=== PATIENT | female | born 1985 | race Caucasian/White ===

== ENCOUNTER 2017-11-02 05:18 | Emergency (ER) | payer MEDICAID ==
[2017-11-02 05:31] VITALS: RESP 18; TEMP 97.5; O2SAT 99
[2017-11-02] MEDS ORDERED: Sodium Chloride 0.9% 1,000 ML IV ONE (05:55)
[2017-11-02] MEDS ORDERED: DiphenhydrAMINE 50 mg/ml Inj IVP STA (05:56)
[2017-11-02] MEDS ORDERED: DiphenhydrAMINE 50 mg/ml Inj ONE (06:03)
[2017-11-02] MEDS ORDERED: Sodium Chloride 0.9% 1,000 ML ONE (06:03)
--- NOTE | 2017-11-02 06:03 | C.PDOC ---
History Of Present Illness 31 year old female presents to the ER with a complaint of a headache for the past 3 days that has worsened today, associated with nausea and photophobia. Patient states she has a Hx of similar headaches in the past for which she usually takes fioricet, however, it has not given her any relief which prompted visit. Denies fever, cough, or change in vision. Time Seen by Provider: 11/02/17 05:35 Chief Complaint (Nursing): Headache History Per: Patient History/Exam Limitations: no limitations Onset/Duration Of Symptoms: Days Current Symptoms Are (Timing): Still Present Pain Scale Rating Of: 7 Quality: Aching Preceeding Symptoms: None Associated Symptoms: Photophobia, Nausea Recent travel outside of the [place]: No Past Medical History Reviewed: Historical Data, Nursing Documentation, Vital Signs Vital Signs: Last Vital Signs Temp 97.5 F L 11/02/17 05:25 Pulse 69 11/02/17 05:25 Resp 18 11/02/17 05:25 BP 127/88 11/02/17 05:25 Pulse Ox 99 11/02/17 06:20 - Medical History PMH: Migraine Denies: Chronic Kidney Disease Family History: States: Unknown Family Hx - Social History Hx Alcohol Use: No Hx Substance Use: No - Immunization History Hx Tetanus Toxoid Vaccination: No Hx Influenza Vaccination: No Hx Pneumococcal Vaccination: No Review Of Systems Constitutional: Negative for: Fever Eyes: Positive for: Other (Photophobia). Negative for: Vision Change Respiratory: Negative for: Cough Gastrointestinal: Positive for: Nausea Neurological: Positive for: Headache. Negative for: Weakness, Numbness Physical Exam - Physical Exam Appears: Non-toxic Skin: Normal Color, Warm, Dry Head: Atraumatic, Normacephalic, No Tenderness (Temporal artery) Eye(s): bilateral: Normal Inspection, PERRL, EOMI Ear(s): Bilateral: Normal Oral Mucosa: Moist Throat: Normal, No Erythema Neck: Normal, No Midline Cervical Tenderness, No Paracervical Tenderness, Supple Chest: Symmetrical, No Tenderness Cardiovascular: Rhythm Regular Respiratory: Normal Breath Sounds, No Rales, No Rhonchi, No Wheezing Gastrointestinal/Abdominal: Soft, No Tenderness Back: Normal Inspection, No CVA Tenderness Extremity: Normal ROM (x4), No Swelling Neurological/Psych: Oriented x3, Normal Speech, Normal Motor, Normal Sensation Gait: Steady ED Course And Treatment - Laboratory Results Result Diagrams: 11/02/17 06:18 08 06:18 O2 Sat by Pulse Oximetry: 99 (Room air) Pulse Ox Interpretation: Normal Medical Decision Making Medical Decision Making: Blood work ordered. Benadryl, reglan, toradol, and IV fluids administered. 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 - Scribe Statement The provider has reviewed the documentation as recorded by the Scribe Issac Cardenas All medical record entries made by the Scribe were at my direction and personally dictated by me. I have reviewed the chart and agree that the record accurately reflects my personal performance of the history, physical exam, medical decision making, and the department course for this patient. I have also personally directed, reviewed, and agree with the discharge instructions and disposition. Physician Patient Turnover Patient Signed Over To: Valentina Collazo (Nehemias Hernandez) Handoff Comments: Pending re-eval.
[2017-11-02 06:23] LABS: BASO # 0.1 K/uL (0.0-0.2); BASO % 0.6 % (0.0-2.0); EOS # 0.2 K/uL (0.0-0.7); EOS % 2.3 % (0.0-4.0); HEMOGLOBIN 11.5 g/dL (11.0-16.0); LYMPH # 3.9 K/uL (1.0-4.3); MEAN CELL VOLUME 72.8 fL (81.0-99.0); MEAN CORPUSCULAR HEMOGLOBIN 23.7 pg (27.0-31.0); MEAN CORPUSCULAR HGB CONC 32.5 g/dL (33.0-37.0); MEAN PLATELET VOLUME 8.5 fL (7.2-11.7); MONO # 0.6 K/uL (0.0-0.8); MONO % 7.3 % (0.0-10.0); NEUT # 3.9 K/uL (1.8-7.0); NEUT % 44.8 % (50.0-75.0); RBC 4.88 Mil/uL (3.80-5.20); RED CELL DISTRIBUTION WIDTH 16.3 % (11.5-14.5); WHITE BLOOD COUNT 8.6 K/uL (4.8-10.8)
[2017-11-02 06:34] LABS: ALB/GLOB RATIO 1.2 (1.0-2.1); ALBUMIN 4.3 g/dL (3.5-5.0); ALT/SGPT 45 U/L (9-52); AST/SGOT 30 U/L (14-36); BLOOD UREA NITROGEN 7 mg/dL (7-17); CALCIUM 9.1 mg/dl (8.6-10.4); GFR AFRICAN-AMERICAN > 60; GFR NON-AFRICAN AMERICAN > 60
[2017-11-02 07:59] VITALS: BP 113/77; PULSE 60
== END 2017-11-02 09:05 | disposition home or self-care (01) ==
LOC: C.ER 05:18
DX: G43.909 Migraine, unspecified, not intractable, without status migrainosus (principal)
CPT/HCPCS: 80053; 85025; 96361; 96374; 96375; 99285; J1200; J1885; J2765; J7030

== ENCOUNTER 2018-02-18 21:15 | Emergency (ER) | payer MEDICAID ==
[2018-02-18 21:32] VITALS: TEMP 98.7
[2018-02-18] MEDS ORDERED: Oxycodone/Acetaminophen 5/325 mg Tab PO STA (21:49)
--- NOTE | 2018-02-18 21:51 | C.PDOC ---
History Of Present Illness 32 yo female w/PMhx of migraine comes in for evaluation of headache gradually developed for past 2-3 days. Pt reports, headache is diffuse, bend-like associated with light sensitivity. Pt sts, took Fioricet oone dose today at 4 PM without significant improvement. Pt admits, similar sx in past. Otherwise, pt denies fever, chills, recent illness, denies worse headache of life, dizziness, vertigo, visual changes, focal deficits, neck pain, CP, SOB, dyspnea, palpitation, abd. pain, V/D, UTI sx. Ambulate to Ed for evaluation, appears in pain. Time Seen by Provider: 02/18/18 21:40 Chief Complaint (Nursing): Headache Past Medical History Reviewed: Historical Data, Nursing Documentation, Vital Signs Vital Signs: Last Vital Signs Temp 98.7 F 02/18/18 21:26 Pulse 74 02/18/18 21:26 Resp 18 02/18/18 21:26 BP 119/84 02/18/18 21:26 Pulse Ox 100 02/18/18 21:26 - Medical History PMH: Migraine Denies: Chronic Kidney Disease Other PMH: Polycystic ovary Family History: States: Unknown Family Hx - Social History Hx Tobacco Use: No Hx Alcohol Use: No Hx Substance Use: No - Immunization History Hx Tetanus Toxoid Vaccination: No Hx Influenza Vaccination: Yes Hx Pneumococcal Vaccination: No Review Of Systems Except As Marked, All Systems Reviewed And Found Negative. Constitutional: Negative for: Fever, Chills Eyes: Negative for: Vision Change ENT: Negative for: Ear Discharge, Nose Discharge, Throat Pain Cardiovascular: Negative for: Chest Pain, Palpitations, Edema, Light Headedness Respiratory: Negative for: Cough, Shortness of Breath Gastrointestinal: Negative for: Nausea, Vomiting, Abdominal Pain Genitourinary: Negative for: Dysuria Musculoskeletal: Negative for: Neck Pain, Back Pain Skin: Negative for: Rash Neurological: Positive for: Headache. Negative for: Weakness, Numbness, Altered Mental Status, Dizziness Physical Exam - Physical Exam Appears: Well, No Acute Distress Skin: Normal Color, Warm, Dry, No Rash Head: Normacephalic Eye(s): bilateral: PERRL, EOMI Ear(s): Bilateral: Normal Nose: No Flaring, No Discharge Oral Mucosa: Moist Tongue: Normal Appearing Lips: Normal Appearing Throat: No Erythema, No Drooling Neck: Trachea Midline, Supple Cardiovascular: Rhythm Regular, No Murmur, No JVD Respiratory: No Decreased Breath Sounds, No Accessory Muscle Use, No Stridor, No Wheezing Gastrointestinal/Abdominal: Soft, No Tenderness Back: No CVA Tenderness Extremity: Normal ROM, No Pedal Edema, No Deformity, No Swelling Neurological/Psych: Oriented x3, Normal Speech, Normal Motor, Normal Sensation, Normal Reflexes ED Course And Treatment O2 Sat by Pulse Oximetry: 100 Pulse Ox Interpretation: Normal - CT Scan/US CT head w/o contrast Other Rad Studies (CT/US): Radiology Report Reviewed CT/US Interpretation: EXAM: CT Head without Intravenous Contrast. CLINICAL HISTORY: HEADACHE. TECHNIQUE: Axial computed tomography images of the head/brain without intravenous contrast. COMPARISON: None provided. FINDINGS: BRAIN. No acute intraparenchymal hemorrhage. No mass lesion. No CT evidence for acute territorial infarct. No midline shift or extra-axial collections. VENTRICLES: No hydrocephalus. ORBITS: The orbits are unremarkable. SINUSES AND MASTOIDS: Bilateral ethmoid and maxillary sinusitis. The mastoid air cells are clear. BONES: No fracture. SOFT TISSUES: Unremarkable. IMPRESSION: Sinusitis. No acute intracranial abnormality. . Electronically signed on Feb 18, 2018 11:02:26 PM EST by: Mohan Barr M.D., JENNIFER Certified By [facility]BR & [facility]. Fellowship Trained MRI and CT Specialist. Progress Note: On re-eval, pt is afebrile, hemodynamicaly stable. Non-toxic. Ambulatory in ED with stable gait. head: AT/NC. Neck: SUpple, (-) JVD, (-) meningeal sign. ENT: no acute findings. Lungs: CTA B/L, BS equal B/L. CVS: (+)S!S2, reg. Abd: benign, (-) guarding, (-) rebound. Neuorlogicaly intact. CT head results review anc c/w sinusitis. results review and discussed with patient. Pt advised and ref. to f/u with PMD, Neurologist in 2-3 days for re- eavl. return to ED if any worsening or new changes. Disposition Counseled Patient/Family Regarding: Studies Performed, Diagnosis, Need For Followup, Rx Given - Disposition Referrals: Home Romano MD [Staff Provider] - Disposition: HOME/ ROUTINE Disposition Time: 23:05 Condition: STABLE Additional Instructions: Encourage fluids Take medication as prescribed follow up with PMD, Neurologist in2 -3 days for re-evaluation. return to ED at any time if any worsening or new changes. Prescriptions: Amoxicillin/Clavulanate [Augmentin 875 MG-125 MG] 1 tab PO BID #14 tab Prednisone [Deltasone] 40 mg PO DAILY #6 tablet Instructions: Sinusitis in Adults, Sinus Headache (DC) Forms: [employer] (S[place] Arabian) - Clinical Impression Clinical Impression: Headache, Sinusitis
[2018-02-18] MEDS ORDERED: Oxycodone/Acetaminophen 5/325 mg Tab ONE (22:05)
[2018-02-18 22:19] LABS: HCG,QUALITATIVE URINE NEGATIVE (NEGATIVE)
[2018-02-18 22:23] LABS: SQUAMOUS EPITHIAL 7 /hpf (0-5); URINE BILIRUBIN NEGATIVE (NEGATIVE); URINE BLOOD NEGATIVE (NEGATIVE); URINE CLARITY Hazy (Clear); URINE COLOR Yellow (YELLOW); URINE GLUCOSE (UA) NORMAL (Normal); URINE LEUKOCYTE ESTERASE NEG Leu/uL (Negative); URINE PROTEIN NEGATIVE (NEGATIVE); URINE UROBILINOGEN NORMAL mg/dL (0.2-1.0)
[2018-02-18] MEDS ORDERED: Amoxicillin-Clav 875-125 mg Tab PO STA (23:06)
[2018-02-18] MEDS ORDERED: Amoxicillin-Clav 875-125 mg Tab PO ONE (23:19)
[2018-02-18 23:22] VITALS: BP 133/81; PULSE 82; RESP 16; O2SAT 98
--- NOTE | 2018-02-19 05:21 | CT ---
Date of service: 02/18/2018 PROCEDURE: CT HEAD WITHOUT CONTRAST. HISTORY: headache COMPARISON: None available. TECHNIQUE: Axial computed tomography images were obtained through the head/brain without intravenous contrast. Radiation dose: Total exam DLP = 955.74 mGy-cm. This CT exam was performed using one or more of the following dose reduction techniques: Automated exposure control, adjustment of the mA and/or kV according to patient size, and/or use of iterative reconstruction technique. FINDINGS: HEMORRHAGE: No intracranial hemorrhage. BRAIN: No mass effect or edema. No atrophy or chronic microvascular ischemic changes. VENTRICLES: Unremarkable. No hydrocephalus. CALVARIUM: Unremarkable. PARANASAL SINUSES: Moderate mucosal thickening noted in the right maxillary and sphenoid sinuses. MASTOID AIR CELLS: Unremarkable as visualized. No inflammatory changes. OTHER FINDINGS: None. IMPRESSION: No evidence of acute intracranial hemorrhage mass effect or midline shift. Moderate mucosal thickening of the right maxillary and sphenoid sinuses. Please correlate clinically for sinusitis. Preliminary report was submitted by [facility].
== END 2018-02-18 23:23 | disposition home or self-care (01) ==
LOC: C.ER 21:15
DX: J32.9 Chronic sinusitis, unspecified (principal); R51 Headache

== ENCOUNTER 2018-03-07 12:48 | Emergency (ER) | payer MEDICAID ==
--- NOTE | 2018-03-07 14:27 | C.PDOC ---
History Of Present Illness 32 year old female presents to the emergency department with complaints of a frontal headache, sinus pressure, and intermittent lightheadedness for the past two weeks. Patient states that she has been seen by her primary care doctor, as well as an emergency department and diagnosed with sinusitis. Patient states that she was treated with antibiotics yet still has pain. She also reports being treated by a neurologist who did an MRI and gave her different pain medications. Patient admits to trying decongestants, painkillers, and nasal sprays yet still feels the same. She states that she has not seen an ENT physician. Time Seen by Provider: 03/07/18 13:09 Chief Complaint (Nursing): Headache History Per: Patient History/Exam Limitations: no limitations Onset/Duration Of Symptoms: Other (two weeks) Current Symptoms Are (Timing): Still Present Quality: "Pain" Associated Symptoms: Other (sinus pressure, lightheadedness, headache) Past Medical History Reviewed: Historical Data, Nursing Documentation, Vital Signs Vital Signs: Last Vital Signs Temp 97.7 F 03/07/18 12:53 Pulse 66 03/07/18 12:53 Resp BP 118/82 03/07/18 12:53 Pulse Ox 100 03/07/18 12:53 - Medical History PMH: Migraine Denies: Chronic Kidney Disease Surgical History: No Surg Hx Family History: States: No Known Family Hx - Social History Hx Tobacco Use: No Hx Alcohol Use: No Hx Substance Use: No - Immunization History Hx Tetanus Toxoid Vaccination: No Hx Influenza Vaccination: Yes Hx Pneumococcal Vaccination: No Review Of Systems Constitutional: Negative for: Fever, Chills ENT: Positive for: Other (sinus pressure) Neurological: Positive for: Headache, Other (lightheadedness) Physical Exam - Physical Exam Appears: Well, Non-toxic, No Acute Distress Skin: Normal Color, Warm, Dry Head: Atraumatic, Normacephalic, Other (frontal sinus tenderness) Eye(s): bilateral: Normal Inspection, PERRL, EOMI Ear(s): Bilateral: Normal (no erythema, no mastoid tenderness) Nose: Other (nasal congestion) Oral Mucosa: Moist Throat: Normal, No Erythema, No Exudate Neck: Normal ROM Chest: Symmetrical, No Tenderness Cardiovascular: Rhythm Regular, No Murmur Respiratory: Normal Breath Sounds, No Rales, No Rhonchi, No Wheezing Extremity: Bilateral: Atraumatic, Normal Color And Temperature, Normal ROM Neurological/Psych: Oriented x3, Normal Speech Gait: Steady ED Course And Treatment O2 Sat by Pulse Oximetry: 100 (RA) Pulse Ox Interpretation: Normal Medical Decision Making Medical Decision Making: Plan: Toradol 30mg IM Reglan 10mg PO Patient is to be discharged, instructed to follow-up with ENT. Disposition Counseled Patient/Family Regarding: Diagnosis, Need For Followup, Rx Given - Disposition Referrals: Olu Gutierrez MD [Staff Provider] - Disposition: HOME/ ROUTINE Disposition Time: 14:26 Condition: GOOD Additional Instructions: You were evaluated today for sinus headache and treated with analgesics. 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 - Scribe Statement The provider has reviewed the documentation as recorded by the Scribe (Ha Truong) All medical record entries made by the Scribe were at my direction and personally dictated by me. I have reviewed the chart and agree that the record accurately reflects my personal performance of the history, physical exam, medical decision making, and the department course for this patient. I have also personally directed, reviewed, and agree with the discharge instructions and disposition.
[2018-03-07 14:42] VITALS: BP 112/78; PULSE 76; RESP 18; TEMP 97.4
[2018-03-07 15:35] VITALS: O2SAT 100
== END 2018-03-07 14:42 | disposition home or self-care (01) ==
LOC: C.ER 12:48
DX: R51 Headache (principal)
CPT/HCPCS: 96372; 99284; J1885

== ENCOUNTER 2018-05-01 17:16 | Emergency (ER) | payer MEDICAID ==
[2018-05-01 17:24] VITALS: RESP 18
--- NOTE | 2018-05-01 18:13 | C.PDOC ---
History Of Present Illness 32yo female, otherwise well, comes to ER reporting right sided headache, and associated dizziness while walking. Patient states she had similar symptoms last year, had a CT study and was diagnosed with sinusitis. Patient had then followed up with a neurologist as well as ENT specialist and states she was given anitbiotics by Dr. Gutierrez (ENT), after which her symptoms resolved. She states recently, she returned from foreign travel (04[place]19[place]) and was well until 2 days ago when her symptoms started. She sates the current headache is similar to prior but more painful; she denies any sudden onset, vision changes, photophobia, weakness or numbness. She denies any neck pain, chest pain, shortness of breath or other complaints. PMD: Home Romano <Magali Jim - Last Filed: 05/01/18 19:16> History Per: Patient History/Exam Limitations: no limitations Onset/Duration Of Symptoms: Days (2) Current Symptoms Are (Timing): Still Present Quality: "Pain" Preceeding Symptoms: denies: Visual Disturbances Associated Symptoms: denies: Photophobia, Blurred Vision, Nausea, Vomiting, Extremity Weakness Additional History Per: Patient <Magali Jim - Last Filed: 05/01/18 19:16> <Ryan Samayoa - Last Filed: 05/01/18 20:12> Time Seen by Provider: 05/01/18 17:48 Chief Complaint (Nursing): Dizziness/Lightheaded Past Medical History Reviewed: Historical Data, Nursing Documentation, Vital Signs Vital Signs: Last Vital Signs Temp 97.6 F 05/01/18 17:22 Pulse 66 05/01/18 17:22 Resp 18 05/01/18 17:22 BP 132/84 05/01/18 17:22 Pulse Ox 100 05/01/18 17:22 - Medical History PMH: Migraine Denies: Chronic Kidney Disease Surgical History: No Surg Hx Family History: States: No Known Family Hx - Social History Hx Tobacco Use: No Hx Alcohol Use: No Hx Substance Use: No - Immunization History Hx Tetanus Toxoid Vaccination: No Hx Influenza Vaccination: Yes Hx Pneumococcal Vaccination: No <Magali Jim - Last Filed: 05/01/18 19:16> Vital Signs: Last Vital Signs Temp 97.6 F 05/01/18 17:22 Pulse 66 05/01/18 17:22 Resp 18 05/01/18 17:22 BP 132/84 05/01/18 17:22 Pulse Ox 100 05/01/18 19:16 <Ryan Samayoa - Last Filed: 05/01/18 20:12> Review Of Systems Except As Marked, All Systems Reviewed And Found Negative. Constitutional: Negative for: Fever, Chills Eyes: Negative for: Vision Change ENT: Positive for: Nose Congestion Cardiovascular: Negative for: Chest Pain Respiratory: Negative for: Shortness of Breath Gastrointestinal: Negative for: Vomiting Musculoskeletal: Negative for: Neck Pain Neurological: Positive for: Headache, Dizziness. Negative for: Weakness, Numbness <Magali Jim - Last Filed: 05/01/18 19:16> Physical Exam - Physical Exam Appears: Non-toxic, No Acute Distress Skin: Normal Color, Warm, Dry Head: Atraumatic, Normacephalic, No Tenderness (sinus tenderness) Eye(s): bilateral: Normal Inspection, PERRL, EOMI Ear(s): Bilateral: Normal Oral Mucosa: Moist Throat: Normal, No Erythema Neck: Normal ROM, Supple Chest: Symmetrical Cardiovascular: Rhythm Regular Respiratory: Normal Breath Sounds Extremity: Normal ROM Neurological/Psych: Oriented x3, Normal Speech, Normal Cognition, Normal Cranial Nerves, Normal Motor, Normal Sensation <Magali Jim Last Filed: 05/01/18 19:16> ED Course And Treatment O2 Sat by Pulse Oximetry: 100 (RA) Pulse Ox Interpretation: Normal Progress Note: Upreg ordered. 1816 Upreg negative; CT head w/o contrast ordered <Magali Jim - Last Filed: 05/01/18 19:16> - CT Scan/US CT Sinuses Other Rad Studies (CT/US): Read By Radiologist, Radiology Report Reviewed CT/US Interpretation: IMPRESSION: Pansinusitis worse within the maxillary and ethmoid sinuses. Clinical correlation advised. CT Head Other Rad Studies (CT/US): Read By Radiologist, Radiology Report Reviewed CT/US Interpretation: IMPRESSION: No acute intracranial abnormality. Inflammatory changes ethmoid sinuses. <Ryan Samayoa - Last Filed: 05/01/18 20:12> Medical Decision Making Medical Decision Making: nasal congestion, kissing turbinates R>L h/o same non-compliant w pseudafed and Flonase re-educated no CT required. <Ryan Samayoa - Last Filed: 05/01/18 20:12> Disposition - Disposition Disposition Time: 19:00 <Magali Jim - Last Filed: 05/01/18 19:16> Doctor Will See Patient In The: Office Counseled Patient/Family Regarding: Studies Performed, Diagnosis <Ryan Samayoa - Last Filed: 05/01/18 20:12> - Disposition Referrals: [facility] [Outside] [facility] [Outside] [facility] [Outside] Olu Gutierrez MD [Staff Provider] - Home Romano MD [Staff Provider] - Disposition: HOME/ ROUTINE Condition: GOOD Additional Instructions: psdudafed 30-60 mg every 6 hours as needed Flonase 1 spray each nasal passage every 12 hours Motrin 600 mg every 6 hours as needed. 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 - Scribe Statement The provider has reviewed the documentation as recorded by the Jony Covarrubias Provider Attestation: All medical record entries made by the Jacquelineibángel were at my direction and personally dictated by me. I have reviewed the chart and agree that the record accurately reflects my personal performance of the history, physical exam, medical decision making, and the department course for this patient. I have also personally directed, reviewed, and agree with the discharge instructions and dis position. <Magali Jim - Last Filed: 05/01/18 19:16> Physician Patient Turnover Patient Signed Over To: Ryan Samayoa Handoff Comments: pending CT head and sinuses <Magali Jim - Last Filed: 05/01/18 19:16>
[2018-05-01] MEDS ORDERED: Oxycodone/Acetaminophen 5/325 mg Tab PO STA (18:30)
[2018-05-01] MEDS ORDERED: Oxycodone/Acetaminophen 5/325 mg Tab ONE (18:41)
[2018-05-01 20:00] VITALS: BP 127/84; PULSE 63; TEMP 98.1; O2SAT 99
--- NOTE | 2018-05-02 10:51 | CT ---
Date of service: 05/01/2018 PROCEDURE: CT HEAD WITHOUT CONTRAST. HISTORY: right headache/congestion COMPARISON: Unenhanced head CT 02/18/2018. TECHNIQUE: Axial computed tomography images were obtained through the head/brain without intravenous contrast. Radiation dose: Total exam DLP = 998.71 mGy-cm. This CT exam was performed using one or more of the following dose reduction techniques: Automated exposure control, adjustment of the mA and/or kV according to patient size, and/or use of iterative reconstruction technique. FINDINGS: HEMORRHAGE: No intracranial hemorrhage. BRAIN: Normal francis-white matter differentiation and density are appreciated throughout the cerebrum and cerebellum with the brainstem appearing unremarkable as well. There is no mass effect. There is no suspicious extra-axial fluid collection and the midline brain anatomy appears diffusely unremarkable. No atrophy or chronic microvascular ischemic changes. VENTRICLES: Unremarkable. No hydrocephalus. CALVARIUM: Unremarkable. PARANASAL SINUSES: Multifocal sinusitis left greater than right ethmoid air cells. MASTOID AIR CELLS: Unremarkable as visualized. No inflammatory changes. OTHER FINDINGS: None. IMPRESSION: Stable unremarkable unenhanced head CT compared to 02/18/2018. Concordant preliminary report from [facility], 05/01/2018 8 o'clock p.m..
--- NOTE | 2018-05-02 11:25 | CT ---
Date of service: 05/01/2018 PROCEDURE: CT SINUSES WITHOUT CONTRAST HISTORY: Right headache/congestion COMPARISON: None available. TECHNIQUE: Contiguous axial CT images of the paranasal sinuses were obtained. Coronal and sagittal reformats were generated. Radiation dose: Total exam DLP = 479.64 mGy-cm. This CT exam was performed using one or more of the following dose reduction techniques: Automated exposure control, adjustment of the mA and/or kV according to patient size, and/or use of iterative reconstruction technique. FINDINGS: There is normal development of the bilateral frontal, ethmoid, right sphenoid and maxillary sinuses with hypo development of the left sphenoid sinus evident. Extensive opacification seen throughout multiple left ethmoid air cells with very few unopacified. Mild opacification of multiple right ethmoid air cells is seen there is moderate right greater than left maxillary sinus opacification. Trace fluid is seen in the dependent right sphenoid sinus and bilateral frontal sinuses. SINUS DRAINAGE: The bilateral ostiomeatal units are partially occluded if not completely by mucoid material/fluid including bilateral maxillary ostia and hiatus semilunaris. Right venous ethmoid recesses patent and unremarkable with left sphenoid ethmoidal recess similarly patent. Right frontal recess is widely patent with left frontal recess partially occluded with mucoid material or fluid. NASAL SEPTUM: Right bony nasal septal deviation noted. MASS: None. SKULL BASE: Unremarkable. TEMPORAL BONES: Middle ears and mastoid grossly unremarkable. OTHER FINDINGS: None. IMPRESSION: [id number] pansinusitis including drainage pathways. No destructive bony lesion appreciated. No fracture identified. Preliminary report provided by [facility], 05/01/2018 8:07 p.m..
== END 2018-05-01 19:58 | disposition home or self-care (01) ==
LOC: C.ER 17:16
DX: R51 Headache (principal)

== ENCOUNTER 2018-05-24 17:29 | Emergency (ER) | payer MEDICAID ==
[2018-05-24] MEDS ORDERED: Sodium Chloride 0.9% 1,000 ML IV ONE (17:53)
[2018-05-24] MEDS ORDERED: Sodium Chloride 0.9% 1,000 ML ONE (18:11)
[2018-05-24 18:19] LABS: BASO % 0.2 % (0.0-2.0); EOS # 0.3 K/uL (0.0-0.7); EOS % 2.5 % (0.0-4.0); HEMOGLOBIN 13.4 g/dL (11.0-16.0); LYMPH # 1.4 K/uL (1.0-4.3); LYMPH % 12.1 % (20.0-40.0); MEAN CELL VOLUME 75.8 fL (81.0-99.0); MEAN CORPUSCULAR HGB CONC 31.6 g/dL (33.0-37.0); MEAN PLATELET VOLUME 8.6 fL (7.2-11.7); MONO # 0.5 K/uL (0.0-0.8); MONO % 4.3 % (0.0-10.0); NEUT # 9.3 K/uL (1.8-7.0); NEUT % 80.9 % (50.0-75.0); RBC 5.61 Mil/uL (3.80-5.20); RED CELL DISTRIBUTION WIDTH 14.4 % (11.5-14.5); WHITE BLOOD COUNT 11.5 K/uL (4.8-10.8)
[2018-05-24 18:31] LABS: SQUAMOUS EPITHIAL 5 /hpf (0-5); URINE BACTERIA RARE (<OCC); URINE BILIRUBIN NEGATIVE (NEGATIVE); URINE BLOOD 1+ (NEGATIVE); URINE CLARITY Hazy (Clear); URINE COLOR Amber (YELLOW); URINE GLUCOSE (UA) NORMAL (Normal); URINE LEUKOCYTE ESTERASE 1+ Leu/uL (Negative); URINE PROTEIN 2+ mg/dL (NEGATIVE); URINE UROBILINOGEN NORMAL mg/dL (0.2-1.0)
[2018-05-24 18:47] LABS: ALB/GLOB RATIO 1.1 (1.0-2.1); ALBUMIN 4.6 g/dL (3.5-5.0); ALT/SGPT 25 U/L (9-52); AST/SGOT 29 U/L (14-36); BLOOD UREA NITROGEN 10 mg/dL (7-17); CALCIUM 9.1 mg/dl (8.6-10.4); GFR NON-AFRICAN AMERICAN > 60; LIPASE 74 U/L (23-300)
[2018-05-24] MEDS ORDERED: Morphine 4 MG/ML VIAL IV STA (18:49)
--- NOTE | 2018-05-24 19:20 | C.PDOC ---
History Of Present Illness 32 year old female with a history of appendectomy presents to the emergency department with complaints of epigastric abdominal pain for the last two days associated with nausea, vomiting, and diarrhea. Patient denies fever, vaginal b leeding, and vaginal discharge but reports positive dysuria. Patient reports positive sick contact with a friend 3 days ago. Time Seen by Provider: 05/24/18 17:48 Chief Complaint (Nursing): Abdominal Pain History Per: Patient History/Exam Limitations: no limitations Onset/Duration Of Symptoms: Days (2) Current Symptoms Are (Timing): Still Present Location Of Pain/Discomfort: Epigastric Quality Of Discomfort: "Pain" Associated Symptoms: Nausea, Vomiting, Diarrhea, Urinary Symptoms (dysuria). denies: Fever, Other (vaginal bleeding, vaginal discharge) Past Medical History Reviewed: Historical Data, Nursing Documentation, Vital Signs Vital Signs: Last Vital Signs Temp 99.7 F H 05/24/18 17:38 Pulse 92 H 05/24/18 19:14 Resp 20 05/24/18 19:14 BP 110/73 05/24/18 19:14 Pulse Ox 97 05/24/18 19:14 - Medical History PMH: Migraine Denies: Chronic Kidney Disease Surgical History: Appendectomy Family History: States: No Known Family Hx - Social History Hx Tobacco Use: No Hx Alcohol Use: No Hx Substance Use: No - Immunization History Hx Tetanus Toxoid Vaccination: No Hx Influenza Vaccination: No Hx Pneumococcal Vaccination: No Review Of Systems Gastrointestinal: Positive for: Nausea, Vomiting, Abdominal Pain, Diarrhea Physical Exam - Physical Exam Appears: Non-toxic, No Acute Distress Skin: Normal Color, Warm, Dry Head: Atraumatic, Normacephalic Eye(s): bilateral: Normal Inspection, PERRL, EOMI Nose: Normal Oral Mucosa: Moist Neck: Normal, Supple Chest: Symmetrical, No Tenderness Cardiovascular: Rhythm Regular, No Murmur Respiratory: Normal Breath Sounds, No Rales, No Rhonchi, No Wheezing Gastrointestinal/Abdominal: Soft, Tenderness (epigastric), No Guarding, No Rebound Extremity: Normal ROM Neurological/Psych: Oriented x3, Normal Speech, Normal Cognition ED Course And Treatment - Laboratory Results Result Diagrams: 05/24/18 18:04 05/24/18 18:04 Lab Results: Total Bilirubin 0.4 mg/dL (0.2-1.3) 05/24/18 18:04 AST 29 U/L (14-36) 05/24/18 18:04 ALT 25 U/L (9-52) 05/24/18 18:04 Alkaline Phosphatase 101 U/L (38-126) 05/24/18 18:04 Total Protein 8.8 g/dL (6.3-8.3) H 05/24/18 18:04 Albumin 4.6 g/dL (3.5-5.0) 05/24/18 18:04 Globulin 4.2 gm/dL (2.2-3.9) H 05/24/18 18:04 Albumin/Globulin Ratio 1.1 (1.0-2.1) 05/24/18 18:04 Lipase 74 U/L (23-300) 05/24/18 18:04 Urine Color Yeny (YELLOW) 05/24/18 18:04 Urine Clarity Hazy (Clear) 05/24/18 18:04 Urine pH 5.0 (5.0-8.0) 05/24/18 18:04 Ur Specific [place] 1.025 (1.003-1.030) 05/24/18 18:04 Urine Protein 2+ mg/dL (NEGATIVE) H 05/24/18 18:04 Urine Glucose (UA) Normal mg/dL (Normal) 05/24/18 18:04 Urine Ketones Negative mg/dL (NEGATIVE) 05/24/18 18:04 Urine Blood 1+ (NEGATIVE) H 05/24/18 18:04 Urine Nitrate Negative (NEGATIVE) 05/24/18 18:04 Urine Bilirubin Negative (NEGATIVE) 05/24/18 18:04 Urine Urobilinogen Normal mg/dL (0.2-1.0) 05/24/18 18:04 Ur Leukocyte Esterase 1+ Cinthya/uL (Negative) H 05/24/18 18:04 Urine WBC (Auto) 33 /hpf (0-5) H 05/24/18 18:04 Urine RBC (Auto) 3 /hpf (0-3) 05/24/18 18:04 Ur Squamous Epith Cells 5 /hpf (0-5) 05/24/18 18:04 Urine Bacteria Rare (<OCC) 05/24/18 18:04 O2 Sat by Pulse Oximetry: 97 (RA) Pulse Ox Interpretation: Normal - CT Scan/US CT Abdomen and Pelvis Other Rad Studies (CT/US): Read By Radiologist, Radiology Report Reviewed CT/US Interpretation: IMPRESSION: 1. Evidence of diffuse enterocolitis. 2. Mild hepatomegaly. Medical Decision Making Medical Decision Making: Plan: CT Abdomen and Pelvis Chemistry CBC XR Obstructive Series Morphine 2mg IVP Pepcid 20mg IVP NaCl IV Fluids Toradol 30mg IVP Zofran 4mg IVP Urine Culture POC Urine Urinalysis Assessment: Abdominal Pain Upon re-eval, patient still has pain. ct scan of abd. pelvis ordered Patient improved and discharged home after being treated for enterocolitis. Patient advised to f/u with PMD. Disposition Counseled Patient/Family Regarding: Studies Performed, Diagnosis, Need For Followup, Rx Given - Disposition Referrals: Home Romano MD [Staff Provider] - Disposition: HOME/ ROUTINE Disposition Time: 20:45 Condition: STABLE Additional Instructions: follow up with your doctor within 2 days call to make an appointment take medications as prescribed return to ER if symptoms worsens or progress Prescriptions: Ciprofloxacin HCl [Cipro] 500 mg PO BID #20 tab Famotidine [Pepcid] 20 mg PO BID #20 tab Metronidazole [Flagyl] 500 mg PO BID #20 tablet Naproxen [Naprosyn] 500 mg PO BID PRN #16 tab PRN Reason: Pain, Moderate (4-7) Ondansetron ODT [Zofran ODT] 4 mg PO TID PRN #12 odt PRN Reason: Nausea/Vomiting Instructions: Colitis Forms: [facility] (Kazakh), General Discharge Instructions - Clinical Impression Clinical Impression: Enterocolitis - Scribe Statement The provider has reviewed the documentation as recorded by the Scribe (Ha Truong) Provider Attestation: All medical record entries made by the Scribe were at my direction and personally dictated by me. I have reviewed the chart and agree that the record accurately reflects my personal performance of the history, physical exam, medical decision making, and the department course for this patient. I have also personally directed, reviewed, and agree with the discharge instructions and disposition.
[2018-05-24] MEDS ORDERED: Iodixanol 320 MG/ML 100 ML BOTTLE IV ONE (19:32)
[2018-05-24 21:03] VITALS: BP 118/76; PULSE 84; RESP 18; TEMP 98.5
[2018-05-24 21:33] VITALS: O2SAT 97
--- NOTE | 2018-05-25 09:18 | CT ---
Date of service: 05/24/2018 PROCEDURE: CT Abdomen and Pelvis with intravenous contrast HISTORY: Abdominal pain COMPARISON: None. TECHNIQUE: Multiple contiguous axial images were performed through the abdomen and pelvis with the use of intravenous contrast. Subsequently, sagittal and coronal reformatted images were obtained. Radiation dose: Total exam DLP = 1214.78 mGy-cm. This CT exam was performed using one or more of the following dose reduction techniques: Automated exposure control, adjustment of the mA and/or kV according to patient size, and/or use of iterative reconstruction technique. FINDINGS: LOWER THORAX: 7 millimeter ground-glass opacity seen within the posterior aspect of the left lower lobe on series 3, image 1. Clinical correlation. LIVER: Mild hepatomegaly. GALLBLADDER AND BILE DUCTS: Unremarkable. PANCREAS: Unremarkable. No gross lesion or ductal dilatation. SPLEEN: Unremarkable. ADRENALS: Unremarkable. No mass. KIDNEYS AND URETERS: Right kidney: No calculi or hydronephrosis. Left Kidney: No calculi or hydronephrosis. Mild fullness of the left renal collecting system. Rounded low-attenuation lesion adjacent to the lateral aspect of the left kidney measuring 2.0 centimeters demonstrating a Hounsfield unit attenuation of 4. This is of uncertain clinical etiology and may represent an exophytic cyst versus mesenteric cyst/cystic lesion versus additional etiology. Correlation with multiphasic contrast enhanced CT or MR may be helpful for further evaluation if clinically indicated. VASCULATURE: Unremarkable. No aortic aneurysm. No aortic atherosclerotic calcification or mural plaque present. BOWEL: Under distended left hemicolon. Fluid-filled right hemicolon. Fluid-filled loops of small bowel. This may represent a mild enterocolitis. Clinical correlation. APPENDIX: Visualized measuring up to 6-7 millimeters in width, grossly preserved. PERITONEUM: Unremarkable. No free fluid. No free air. LYMPH NODES: Shotty inguinal and para-aortic lymph nodes. Left axillary lymph node measures up to 1.3 centimeters. Clinical correlation. BLADDER: Distended urinary bladder. REPRODUCTIVE: Heterogeneous uterus and bilateral adnexa. BONES: Delbert sacralization of the left aspect of the L5 vertebral body. OTHER FINDINGS: None. IMPRESSION: 1. Fluid-filled right hemicolon. Fluid-filled loops of small bowel. This may represent a mild enterocolitis. Clinical correlation. 2. Rounded low-attenuation lesion adjacent to the lateral aspect of the left kidney measuring 2.0 centimeters demonstrating a Hounsfield unit attenuation of 4. This is of uncertain clinical etiology and may represent an exophytic cyst versus mesenteric cyst/cystic lesion versus additional etiology. Correlation with multiphasic contrast enhanced CT or MR may be helpful for further evaluation if clinically indicated. 3. Shotty inguinal and para-aortic lymph nodes. Left axillary lymph node measures up to 1.3 centimeters. Clinical correlation. 4. 7 millimeter ground-glass opacity seen within the posterior aspect of the left lower lobe on series 3, image 1. Clinical correlation. 5. Mild hepatomegaly. Clinical correlation. A preliminary report was generated at 8:36 p.m. on 05/24/[address] Mohan Barr from [email or web address]. This case was placed in the PA review folder.
--- NOTE | 2018-05-25 12:21 | RAD ---
Date of service: 05/24/2018 PROCEDURE: Radiographs of the chest and abdomen (obstructive series) HISTORY: Abdominal pain COMPARISON: No prior. TECHNIQUE: AP radiograph of the chest, with upright and supine radiographs of the abdomen. FINDINGS: CHEST: Lungs: The lungs are well inflated and clear. Cardiovascular: Normal size heart. No pulmonary vascular congestion. No aortic atherosclerotic calcification present Pleura: No pleural fluid. No pneumothorax. Other findings: None. ABDOMEN AND PELVIS: Bowel: There are small air-fluid levels in the abdomen. No evidence of mechanical obstruction. Free air: None. Bones: Unremarkable. Other findings: None. IMPRESSION: Small air-fluid levels in the abdomen could be related to diarrhea or nonspecific gastroenteritis. No mechanical bowel obstruction. Clear lungs.
== END 2018-05-24 21:16 | disposition home or self-care (01) ==
LOC: C.ER 17:29
DX: K52.9 Noninfective gastroenteritis and colitis, unspecified (principal)
CPT/HCPCS: 74022; 74177; 80053; 81001; 81025; 83690; 85025; 87086; 96361; 96374; 96375; 99285; J1885; J2270; J2405; J7030; Q9967

== ENCOUNTER 2018-07-26 10:15 | Emergency (ER) | payer MEDICAID, OTHER ==
[2018-07-26 10:41] VITALS: RESP 20
--- NOTE | 2018-07-26 10:53 | C.PDOC ---
History Of Present Illness 32 y/o F p/w vaginal bleeding this morning. Patient states she saw 1 blood clot this morning. Denies pain. States 7 weeks . Denies dysuria, fever. Time Seen by Provider: 07/26/18 10:45 Chief Complaint (Nursing): Female Genitourinary Past Medical History Vital Signs: Last Vital Signs Temp 98.2 F 07/26/18 10:25 Pulse 102 H 07/26/18 10:25 Resp 20 07/26/18 10:25 BP 131/82 07/26/18 10:25 Pulse Ox 99 07/26/18 10:25 - Medical History PMH: Hypothyroidism, Migraine Denies: Chronic Kidney Disease Surgical History: Appendectomy Family History: States: No Known Family Hx - Social History Hx Tobacco Use: No Hx Alcohol Use: No Hx Substance Use: No - Immunization History Hx Tetanus Toxoid Vaccination: No Hx Influenza Vaccination: Yes Hx Pneumococcal Vaccination: No Review Of Systems Except As Marked, All Systems Reviewed And Found Negative. Constitutional: Negative for: Fever Respiratory: Negative for: Shortness of Breath Physical Exam - Physical Exam Additional Physical Exam Comments: gen nad head nc/at eyes perrl ent mmm neck supple chest no tenderness cv borderline tachycardia lungs cta b/l abd soft, nt back no cva tenderness skin no rash extremities no tenderness neuro alert ED Course And Treatment - Laboratory Results Result Diagrams: 07/26/18 11:16 07/26/18 11:16 O2 Sat by Pulse Oximetry: 99 Medical Decision Making Medical Decision Making: differential includes but not limited to spontaneous vs threatened . IMPRESSION: Single live intrauterine gestation of approximately 6 weeks 3 days gestational age. heart rate 139 beats per minute. No subchorionic hemorrhage. Cervix long and closed. Discharged home, f/u OBGYN, return to ED for worsening bleeding or pain. Disposition - Disposition Referrals: Hipolito Taylor MD [Staff Provider] - Disposition: HOME/ ROUTINE Disposition Time: 12:50 Condition: GOOD Instructions: Bleeding With Forms: [facility] (German) - Clinical Impression Clinical Impression: Vaginal bleeding in
[2018-07-26 10:57] LABS: SQUAMOUS EPITHIAL 3 /hpf (0-5); URINE BACTERIA RARE (<OCC); URINE BILIRUBIN NEGATIVE (NEGATIVE); URINE BLOOD 3+ (NEGATIVE); URINE CLARITY Hazy (Clear); URINE COLOR Yellow (YELLOW); URINE GLUCOSE (UA) NORMAL (Normal); URINE LEUKOCYTE ESTERASE NEG Leu/uL (Negative); URINE PROTEIN 1+ mg/dL (NEGATIVE); URINE UROBILINOGEN NORMAL mg/dL (0.2-1.0)
[2018-07-26 10:58] LABS: HCG,QUALITATIVE URINE POSITIVE (NEGATIVE)
[2018-07-26 11:25] LABS: BASO # 0.1 K/uL (0.0-0.2); BASO % 0.6 % (0.0-2.0); EOS # 0.3 K/uL (0.0-0.7); EOS % 3.1 % (0.0-4.0); HEMOGLOBIN 12.6 g/dL (11.0-16.0); LYMPH % 27.8 % (20.0-40.0); MEAN CELL VOLUME 75.2 fL (81.0-99.0); MEAN CORPUSCULAR HEMOGLOBIN 24.8 pg (27.0-31.0); MEAN PLATELET VOLUME 8.1 fL (7.2-11.7); MONO # 0.8 K/uL (0.0-0.8); MONO % 7.6 % (0.0-10.0); NEUT # 6.6 K/uL (1.8-7.0); NEUT % 60.9 % (50.0-75.0); NRBC % 0.1 % (0.0-2.0); RBC 5.07 Mil/uL (3.80-5.20); RED CELL DISTRIBUTION WIDTH 14.3 % (11.5-14.5); WHITE BLOOD COUNT 10.8 K/uL (4.8-10.8)
[2018-07-26 11:38] LABS: ALB/GLOB RATIO 1.2 (1.0-2.1); ALBUMIN 4.2 g/dL (3.5-5.0); ALT/SGPT 25 U/L (9-52); AST/SGOT 25 U/L (14-36); BLOOD UREA NITROGEN 5 mg/dL (7-17); CALCIUM 8.7 mg/dl (8.6-10.4); GFR NON-AFRICAN AMERICAN > 60
--- NOTE | 2018-07-26 12:36 | US ---
Date of service: 07/26/2018 PROCEDURE: OB Pelvic Ultrasound HISTORY: vag bleed in , assess cervix LMP: 05/26/2018 COMPARISON: None available. FINDINGS: UTERUS: Gestational sac: 14 mm equal to 5 weeks 5 days gestational age pole 10 mm equal to 7 weeks 1 day Heart rate: 139 bpm. age (Ultrasound estimated): 6 weeks 3 days Alem-gestational hemorrhage: None. Date of delivery (Ultrasound estimated) : 03/18/2019 2 mm yolk sac visualized. Uterus measures 9.6 x 5.9 x 5.6 cm. Normal in size and appearance. CERVIX: Measures 3.8 cm. Long and closed. No cervical abnormality seen. RIGHT OVARY: Measures 3.2 x 2.5 x 3.5 cm. No mass lesion. Normal flow. LEFT OVARY: Measures 4.5 x 3.3 x 4.9 cm. No solid mass. Normal flow. Corpus luteum, 2.8 x 2.2 x 3.5 cm. Physiologic cyst, 1.6 cm. FREE FLUID: Small amount of free fluid noted in cul-de-sac incidentally. OTHER FINDINGS: None. IMPRESSION: Single live intrauterine gestation of approximately 6 weeks 3 days gestational age. heart rate 139 beats per minute. No subchorionic hemorrhage. Cervix long and closed.
[2018-07-26 13:03] VITALS: BP 113/78; PULSE 82; TEMP 98.6; O2SAT 100
== END 2018-07-26 13:01 | disposition home or self-care (01) ==
LOC: C.ER 10:15
DX: O20.9 Hemorrhage in early pregnancy, unspecified (principal); Z3A.01 Less than 8 weeks gestation of pregnancy